=== PATIENT | male | born 2000 | race Two or more races ===

== ENCOUNTER 2019-07-24 20:43 | Emergency (ER) | payer BC ==
[~2019-07-24] VITALS: Ht 170.2 cm; Wt 114.0 kg
[2019-07-24] MEDS ORDERED: IBUPROFEN 600MG TABLET PO STA (23:34)
[2019-07-24 23:52] VITALS: BP 157/84
[2019-07-25 00:14] LABS: BASOPHILS % 0.4 % (0.0-2.0); EOSINOPHILS % 0.1 % (0.0-5.0); HEMATOCRIT. 47.6 % (42.0-52.0); HEMOGLOBIN. 16.2 g/dL (14.0-18.0); LYMPHOCYTES % 10.4 % (20.0-50.0); MEAN CORPUSCULAR HEMOGLOBIN 30.2 pg (28.0-32.0); MEAN CORPUSCULAR VOLUME 88.5 fL (80.0-94.0); MEAN PLATELET VOLUME 8.4 fl (7.4-10.4); MONOCYTES % 5.9 % (2.0-8.0); NEUTROPHILS % 83.2 % (40.0-76.0); PLATELET 301 x1000/uL (130-400); RED BLOOD CELL COUNT 5.37 mill/uL (4.7-6.1); RED CELL DISTRIBUTION WIDTH 13.4 % (11.6-14.6)
[2019-07-25 00:22] LABS: CLARITY URINE CLEAR (CLEAR); COLOR URINE YELLOW (YELLOW); KETONES URINE 2+ (NEGATIVE); LEUKOCYTE ESTERASE URINE NEGATIVE (NEGATIVE); NITRITE URINE NEGATIVE (NEGATIVE); OCCULT BLOOD URINE NEGATIVE (NEGATIVE); PH URINE 5.5 (4.5-8.0); PROTEIN URINE NEGATIVE (NEGATIVE); UROBILINOGEN URINE 0.2 E.U./dL (0.2-1.0)
[2019-07-25 00:27] LABS: CHLORIDE 108 mEq/L (98-107)
== END 2019-07-25 00:53 | disposition home or self-care (01) ==
LOC: ER 21:27
DX: F43.20 Adjustment disorder, unspecified (principal); R20.2 Paresthesia of skin; Z63.79 Other stressful life events affecting family and household; Z63.6 Dependent relative needing care at home
CPT/HCPCS: 36415; 71045; 80048; 81003; 93005; 99284